=== PATIENT | female | born 1950 | race Caucasian/White ===

== ENCOUNTER → 2021-10-31 | Day surgery (SDC) | payer MEDICARE ==
[~2021-10-31] VITALS: Ht 158 cm; Wt 64.9 kg
[~2021-10-31] MED LIST: CETIRIZINE HCL10 MG PO; COZAAR50 MG PO; CYMBALTA20 MG PO; LIPITOR 10MG TA10 MG PO; ST. JOSEPH ASPI81 MG PO; TOPROL XL25 MG PO
== END | disposition home or self-care (01) ==
LOC: FAS 08:43
DX: K57.30 Diverticulosis of large intestine without perforation or abscess without bleeding (principal); K58.9 Irritable bowel syndrome, unspecified; I10 Essential (primary) hypertension; E78.00 Pure hypercholesterolemia, unspecified; Z88.5 Allergy status to narcotic agent; Z79.82 Long term (current) use of aspirin
CPT/HCPCS: J1610; J2704; J7120